=== PATIENT | female | born 1950 | race Caucasian/White ===

== ENCOUNTER 2016-12-03 14:23 | Emergency (ER) | payer MEDICAID ==
[~2016-12-03] VITALS: Ht 157.5 cm; Wt 69.1 kg
[~2016-12-03 14:23] MED LIST: LOTENSIN20 M1 PO; NEXIUM40 MG PO; SYNTHROID0.05 M1 PO
[2016-12-03 14:28] VITALS: BP 154/56
--- NOTE | 2016-12-03 16:55 | NUR ---
66/F BIB C/O POSTERIOR NECK PAIN RADIATING TO RIGHT SCAPULA AND SHOULDER X 1 MONTH;DENIES RECENT INJURY, DENIES INCONTINENCE; HX OF ARTHRITIS, HTN, THYROID, PRIMARTY BILIARY CIRRHOSIS. DENIES N/V/D; SKIN IS PINK/WARM/DRY; AAOX4 WITH EVEN AND STEADY GAIT; LUNGS CLEAR BL; HR EVEN AND REGULAR; PT DENIES ANY FEVER, CP, SOB, OR COUGH AT THIS TIME; PATIENT STATES PAIN OF 10/10 AT THIS TIME; PATIENT POSITIONED FOR COMFORT; HOB ELEVATED; BEDRAILS UP X2; BED DOWN. ER MD MADE AWARE OF PT STATUS.
--- NOTE | 2016-12-03 17:26 | NUR ---
ER MD DR SOUTH EVALUATING PT AT BEDSIDE
[2016-12-03] MEDS ORDERED: KETOROLAC 60 MG/2 ML VIAL IM ONE (17:35)
[2016-12-03] MEDS ORDERED: CYCLOBENZAPRINE 10 MG TAB PO ONE (17:35)
--- NOTE | 2016-12-03 17:49 | NUR ---
LAB & EKG AT BEDSIDE
--- NOTE | 2016-12-03 17:57 | NUR ---
PT TAKEN TO [facility] VIA W/C ACCOMPANIED BY [employer].
--- NOTE | 2016-12-03 18:06 | NUR ---
BACK FROM X RAY
--- NOTE | 2016-12-03 18:10 | NUR ---
Patient appears to be resting comfortably in bed. Vital Signs within normal limits. Respirations even and unlabored.WILL CONTINUE TO MONITOR.
--- NOTE | 2016-12-03 19:00 | NUR ---
ER MD DR SOUTH REEVALUATING PT AT BEDSIDE.
--- NOTE | 2016-12-03 19:13 | NUR ---
Pt report given to DONOVAN IBARRA. Transfer of care at this time.
[2016-12-03 19:46] VITALS: BP 123/73
--- NOTE | 2016-12-03 19:46 | NUR ---
Patient discharged with v/s stable. Written and verbal after care instructions given and explained. Patient alert, oriented and verbalized understanding of instructions. Ambulatory with steady gait. All questions addressed prior to discharge. ID band removed. Patient advised to follow up with PMD. Rx of FLEXERIL,DICLOFENAC given. Patient educated on indication of medication including possible reaction and side effects. Opportunity to ask questions provided and answered.
== END 2016-12-03 19:46 | disposition home or self-care (01) ==
LOC: MED 14:23
DX: M75.31 Calcific tendinitis of right shoulder (principal); I10 Essential (primary) hypertension; E07.9 Disorder of thyroid, unspecified; J45.909 Unspecified asthma, uncomplicated; Z88.6 Allergy status to analgesic agent; Z88.5 Allergy status to narcotic agent; Z90.89 Acquired absence of other organs; Z90.49 Acquired absence of other specified parts of digestive tract; Z90.710 Acquired absence of both cervix and uterus
CPT/HCPCS: 36415; 73030; 80053; 84484; 85025; 93005; 96372; 99285; J1885

== ENCOUNTER 2018-06-30 13:48 | Emergency (ER) | payer OTHER, MEDICARE ==
[~2018-06-30] VITALS: Ht 157.5 cm; Wt 69.1 kg
[~2018-06-30 13:48] MED LIST changes: +BENA20TA PO; +ESOM40EC PO; -LOTENSIN20 M1 PO; -NEXIUM40 MG PO; +SYN.05 PO; -SYNTHROID0.05 M1 PO
[2018-06-30 13:56] VITALS: BP 121/62
[2018-06-30] MEDS ORDERED: ACETAMINOPHEN 325 MG TAB PO ONE (16:15)
[2018-06-30 17:26] VITALS: BP 141/66
== END 2018-06-30 17:27 | disposition home or self-care (01) ==
LOC: MED 13:48
DX: B34.9 Viral infection, unspecified (principal); K21.9 Gastro-esophageal reflux disease without esophagitis; I10 Essential (primary) hypertension; E07.9 Disorder of thyroid, unspecified; Z90.49 Acquired absence of other specified parts of digestive tract; Z90.710 Acquired absence of both cervix and uterus; Z79.899 Other long term (current) drug therapy; Z88.6 Allergy status to analgesic agent; Z88.5 Allergy status to narcotic agent
CPT/HCPCS: 36415; 87081; 87804; 99283

== ENCOUNTER 2018-11-27 15:02 | Emergency (ER) | payer OTHER, BC ==
[~2018-11-27] VITALS: Ht 154.9 cm; Wt 68.5 kg
[2018-11-27 15:32] VITALS: BP 144/80
[2018-11-27 16:19] LABS: BASOPHILS % (AUTO) 0.8 % (0.0-2.0); EOSINOPHILS # (AUTO) 0.2 K/uL (0-0.4); EOSINOPHILS % (AUTO) 3.9 % (0.0-4.0); HEMATOCRIT 38.9 % (36-48); HEMOGLOBIN 13.1 g/dL (12.0-16.0); LYMPHOCYTES # (AUTO) 1.4 K/uL (2.5-16.5); LYMPHOCYTES % (AUTO) 26.5 % (20.5-51.1); MEAN CORPUSCULAR HEMOGLOBIN 29 pg (27-31); MEAN CORPUSCULAR HGB CONC 34 g/dL (33-37); MEAN CORPUSCULAR VOLUME 85.4 fL (80-94); MONOCYTES # (AUTO) 0.5 K/uL (0.8-1.0); MONOCYTES % (AUTO) 10.1 % (1.7-9.3); NEUTROPHILS # (AUTO) 3.1 K/uL (1.8-7.7); NEUTROPHILS % (AUTO) 58.7 % (42.2-75.2); PLATELET COUNT (AUTO) 239 K/uL (140-450); RED BLOOD CELL COUNT(AUTO) 4.55 MIL/uL (4.20-5.40); RED CELL DISTRIBUTION WIDTH 14.5 % (11.6-13.7); WHITE BLOOD COUNT (AUTO) 5.3 K/uL (4.8-10.8)
[2018-11-27 16:19] LABS: APPEARANCE,URINE CLEAR (CLEAR); BILIRUBIN,URINE NEGATIVE (NEGATIVE); BLOOD, URINE NEGATIVE (NEGATIVE); COLOR,URINE YELLOW (YELLOW); LEUKOCYTE ESTERASE ,URINE NEGATIVE (NEGATIVE); NITRITE, URINE NEGATIVE (NEGATIVE); UGLUCOSE NEGATIVE (NEGATIVE)
[2018-11-27 16:28] LABS: ANION GAP 10.6 (8-16); CARBON DIOXIDE 29.3 mmol/L (21-32); CREATININE 0.9 mg/dL (0.6-1.3); POTASSIUM 3.9 mmol/L (3.5-5.1)
[2018-11-27 16:34] LABS: ALBUMIN 3.4 g/dL (3.4-5.0); TOTAL BILIRUBIN 0.3 mg/dL (0.0-1.0)
--- NOTE | 2018-11-27 18:30 | NUR ---
[facility], PT REPORTS LUQ PAIN AT 9/10 THAT RADIATES ACROSS UPPER ABD.
--- NOTE | 2018-11-27 19:15 | NUR ---
PT TAKEN TO BED 2.
--- NOTE | 2018-11-27 20:00 | NUR ---
68 YO F BIB SELF AND PRESENTS TO ED C/O 510 ABD PAIN X1 WEEK. PT REPORTS SHARP PAIN IN RUQ PAIN THAT RADIATES ACROSS UPPER ABD AND TO BACK AFTER EATING. ALSO C/O NAUSEA WITH NO VOMITING. DENIES CHANGE IN BOWEL HABITS. LAST BM TODAY, NORMAL. -- PT CALM, ALERT. IS COOPERATIVE, ANSWERS QUESTIONS APPROPRIATELY, BEHAVIOR APPROPRIATE. -- SKIN PINK, WARM, DRY. BREATHING EVEN, UNLABORED. -- ABD IS SOFT, FLAT, TENDER TO TOUCH. NO REBOUND TENDERNESS NOTED, BOWEL SOUNDS PRESENT/ACTIVE TO ALL 4 QUADRANTS. PMH-- HTN, HYPOTHYROIDISM, GASTRITIS RX-- OMEPRAZOLE 20 MG DAILY
[2018-11-27] MEDS ORDERED: DICYCLOMINE HCL LIQUID 20 MG, ALUMINUM HYD/MAG/SIMETHICONE 30 ML, LIDOCAINE VISCOUS 2% ... PO ONE ×3 (20:10)
[2018-11-27] MEDS ORDERED: KETOROLAC 30 MG/ML VIAL IM ONE (20:10)
--- NOTE | 2018-11-27 20:15 | NUR ---
US AT BEDSIDE.
--- NOTE | 2018-11-27 21:39 | NUR ---
PT TAKEN TO CT VIA [facility].
--- NOTE | 2018-11-27 23:00 | NUR ---
DPatient discharged with v/s stable. Written and verbal after care instructions given and explained. Patient alert, oriented and verbalized understanding of instructions. Ambulatory with steady gait. All questions addressed prior to discharge. ID band removed. Patient advised to follow up with PMD. Rx of BENTYL, MIRALAX given. Patient educated on indication of medication including possible reaction and side effects. Opportunity to ask questions provided and answered.
[2018-11-27 23:01] VITALS: BP 143/67
== END 2018-11-27 23:00 | disposition home or self-care (01) ==
LOC: MED 15:02
DX: R10.11 Right upper quadrant pain (principal); Z90.49 Acquired absence of other specified parts of digestive tract; Z90.710 Acquired absence of both cervix and uterus; I10 Essential (primary) hypertension; E03.9 Hypothyroidism, unspecified; Z88.6 Allergy status to analgesic agent; Z88.5 Allergy status to narcotic agent; Z79.899 Other long term (current) drug therapy
CPT/HCPCS: 36415; 74176; 76705; 80053; 81003; 83690; 85025; 96372; 99284; J1885; Q0092